=== PATIENT | male | born 1975 | race Caucasian/White ===

== ENCOUNTER 2017-02-04 09:00 | Emergency (ER) | payer BC ==
[~2017-02-04] VITALS: Ht 177.8 cm; Wt 78.0 kg
[2017-02-04] MEDS ORDERED: HYDROCODONE/ACETAMINOPHEN 5/325MG TABLET PO ONE (10:00)
[2017-02-04 10:35] VITALS: BP 133/89
== END 2017-02-04 10:51 | disposition home or self-care (01) ==
LOC: ER 10:33
DX: M25.562 Pain in left knee (principal); E78.00 Pure hypercholesterolemia, unspecified; X50.1XXA Overexertion from prolonged static or awkward postures, initial encounter; Y93.73 Activity, racquet and hand sports; Y92.39 Other specified sports and athletic area as the place of occurrence of the external cause
CPT/HCPCS: 73562; 99284; L1830

== ENCOUNTER → 2017-02-07 | Outpatient (CLI) | payer BC | END | disposition home or self-care (01) | LOC: MRI 07:40 | PROVIDERS: ATTEND Family Medicine | DX: S83.412A Sprain of medial collateral ligament of left knee, initial encounter (principal); M25.462 Effusion, left knee; M94.262 Chondromalacia, left knee; M71.22 Synovial cyst of popliteal space [Baker], left knee; X58.XXXA Exposure to other specified factors, initial encounter; Y93.89 Activity, other specified; Y92.89 Other specified places as the place of occurrence of the external cause; Y99.8 Other external cause status | CPT/HCPCS: 73721 ==

== ENCOUNTER → 2017-02-20 | Outpatient (CLI) | payer BC | END | disposition home or self-care (01) | LOC: MRI 07:38 | PROVIDERS: ATTEND Orthopaedic Surgery | DX: S83.412A Sprain of medial collateral ligament of left knee, initial encounter (principal); S83.005A Unspecified dislocation of left patella, initial encounter; S80.02XA Contusion of left knee, initial encounter; M25.462 Effusion, left knee; M94.262 Chondromalacia, left knee; X58.XXXA Exposure to other specified factors, initial encounter; Y93.89 Activity, other specified; Y92.89 Other specified places as the place of occurrence of the external cause; Y99.8 Other external cause status | CPT/HCPCS: 73721 ==

== ENCOUNTER → 2017-05-10 | Outpatient (CLI) | payer BC | END | disposition home or self-care (01) | LOC: MRI 09:38 | DX: S83.012A Lateral subluxation of left patella, initial encounter (principal); R60.0 Localized edema; X58.XXXA Exposure to other specified factors, initial encounter; Y93.89 Activity, other specified; Y92.89 Other specified places as the place of occurrence of the external cause; Y99.8 Other external cause status | CPT/HCPCS: 73721 ==